=== PATIENT | male | born 1965 | race Caucasian/White ===

== ENCOUNTER 2017-04-03 08:16 | Emergency (ER) | payer BC ==
[2017-04-03 08:21] VITALS: BP 151/93; PULSE 65; RESP 18; TEMP 98.3
--- NOTE | 2017-04-03 08:46 | XR ---
EXAMINATION TYPE: XR shoulder complete LT DATE OF EXAM: 04/03/2017 8:40 AM CLINICAL HISTORY: pain COMPARISON: NONE TECHNIQUE: Three views of the left shoulder are obtained. FINDINGS: There is no acute fracture/dislocation evident. The acromioclavicular and glenohumeral apurva int spaces appear mildly narrowed. The visualized ribs are intact and unremarkable. IMPRESSION: 1. There is no acute fracture or dislocation. ICD 10 NO FRACTURE, INITIAL EVALUATION
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
== END 2017-04-03 09:04 | disposition home or self-care (01) ==
LOC: EC 08:16
DX: S46.002A Unspecified injury of muscle(s) and tendon(s) of the rotator cuff of left shoulder, initial encounter (principal); I10 Essential (primary) hypertension; Z87.891 Personal history of nicotine dependence; Z79.899 Other long term (current) drug therapy; V86.09XA Driver of other special all-terrain or other off-road motor vehicle injured in traffic accident, initial encounter
CPT/HCPCS: 99283

== ENCOUNTER 2021-02-16 07:37 | Emergency (ER) | payer BC ==
[2021-02-16 07:42] VITALS: TEMP 98.2
[2021-02-16] MEDS ORDERED: MORPHINE SULFATE 4 MG/ML SYRINGE IM STA (07:48)
--- NOTE | 2021-02-16 07:52 | ED ---
General Adult HPI - General Chief complaint: Fall Stated complaint: fall/arm injury Source: patient Limitations: no limitations - History of Present Illness Initial comments: 35-year-old male with a past medical history of hypertension presents to the emergency room for a chief complaint of left wrist pain. Patient states about 5 hours prior to arrival he fell down about a flight of stairs. States he was walking on the stairs and his cat ran up in tripped him. Patient states he did not hit his head. He denies neck pain. Denies any back chest or abdominal pain. Patient's complaint is left wrist pain. Patient states he thinks it is broken.Patient has no other complaints at this time including shortness of breath, chest pain, abdominal pain, nausea or vomiting, headache, or visual changes. - Related Data Home Medications Medication Instructions Recorded Confirmed Ibuprofen [Motrin] 800 mg PO Q8H PRN 02/16/21 02/16/21 Nebivolol HCl [Bystolic] 20 mg PO DAILY 02/16/21 02/16/21 Allergies Allergy/AdvReac Type Severity Reaction Status Date / Time No Known Allergies Allergy Verified 02/16/21 08:23 Review of Systems ROS Statement: Those systems with pertinent positive or pertinent negative responses have been documented in the HPI. ROS Other: All systems not noted in ROS Statement are negative. Past Medical History Past Medical History: Hypertension History of Any Multi-Drug Resistant Organisms: None Reported Past Surgical History: Orthopedic Surgery Past Psychological History: No Psychological Hx Reported Smoking Status: Former smoker Past Alcohol Use History: Occasional Past Drug Use History: None Reported General Exam Limitations: no limitations General appearance: alert, in no apparent distress Head exam: Present: atraumatic, normocephalic, normal inspection Eye exam: Present: normal appearance, PERRL, EOMI. Absent: scleral icterus, conjunctival injection, periorbital swelling ENT exam: Present: normal exam, mucous membranes moist Neck exam: Present: normal inspection, full ROM. Absent: tenderness Respiratory exam: Present: normal lung sounds bilaterally. Absent: respiratory distress, wheezes, rales, rhonchi, stridor, chest wall tenderness, other (No ecchymosis) Cardiovascular Exam: Present: regular rate, normal rhythm, normal heart sounds. Absent: systolic murmur, diastolic murmur, rubs, gallop, clicks GI/Abdominal exam: Present: soft, normal bowel sounds. Absent: distended, tenderness (No tenderness, no ecchymosis), guarding, rebound, rigid Extremities exam: Present: tenderness (Tenderness to the distal left wrist.), normal capillary refill (Capillary refill less than 2 seconds, radial pulse 2+ in the left upper extremity), joint swelling (Mild edema of the left wrist, no rings on the left hand), other (sensation of the left hand.). Absent: normal inspection (Deformity noted of the left wrist in a dinner fork pattern), full ROM (Patient able to move all fingers of the left hand. Able to make okay sign, abduction fingers. Pain limits patient's flexion and extension of the left wrist.) Back exam: Absent: CVA tenderness (R), CVA tenderness (L), vertebral tenderness (No thoracic or lumbar spine tenderness. No ecchymosis.) Neurological exam: Present: alert Course Vital Signs 02/16/21 02/16/21 07:38 08:42 Temperature 98.2 F Pulse Rate 69 63 Respiratory 16 18 Rate Blood Pressure 155/101 138/93 O2 Sat by Pulse 97 96 Oximetry Procedures - Orthopedic Fracture Reduction Fracture #1 Consent Obtained: verbal consent Side: left Fracture Reduction Location: radius Analgesia: hematoma block (aseptic technique utilized) Technique: direct manipulation, traction/counter-traction Splint Applied: Yes (sugar tong) Patient Tolerated Procedure: well, no complications - Orthopedic Splinting/Casting Injury #1 Side: left Upper Extremity Injury Location: long arm Upper Extremity Immobilizer: sugar tong splint Medical Decision Making - Medical Decision Making X-ray of the left wrist did reveal an acute comminuted displaced intra-articular fracture through the distal radial metaphysis. Patient has sensation intact in all digits. Able to move all fingers. Radial pulses 2+. Capillary refill less than 2 seconds in all fingers. Hematoma block was performed with aseptic technique. I was then able to attempt reduction of the left wrist which was splinted in a sugar tong. Repeat x-ray show some persistent dorsal angulation however there is some improvement in alignment on review of films. At this time patient will follow up with orthopedics and return for any worsening symptoms. Disposition Clinical Impression: Distal radius fracture, left Disposition: HOME SELF-CARE Condition: Good Instructions (If sedation given, give patient instructions): Wrist Fracture in Adults (ED) Additional Instructions: Please keep the splint dry. Please rest ice and elevate the left wrist. Follow-up with orthopedics by calling today for an appointment. Take Tylenol 3 for pain, do not drive or operate machinery while taking this. Return to the emergency room for any worsening symptoms. Is patient prescribed a controlled substance at d/c from ED?: No Referrals: Magdaleno Guzman MD [Primary Care Provider] - 1-2 days Parker Herbert MD [STAFF PHYSICIAN] - 1-2 days Time of Disposition: 09:27
--- NOTE | 2021-02-16 08:34 | XR ---
EXAMINATION TYPE: XR wrist complete LT DATE OF EXAM: 02/16/2021 CLINICAL HISTORY: Fall injury with pain. TECHNIQUE: Frontal, lateral, scaphoid, and oblique images of the left wrist are obtained. COMPARISON: None FINDINGS: There is acute comminuted displaced impacted intra-articular fracture distal radial meta-e piphysis. There is dorsal step-off of the scaphoid relative to the distal radius. Several fracture f ragments involving radial articulation. Distal ulna are intact. Carpal joint spaces are maintained. M ild to moderate associated soft tissue swelling. IMPRESSION: There is acute comminuted displaced intra-articular fracture through distal radial metap hysis. (Initial encounter closed type posttraumatic fracture)
[2021-02-16] MEDS ORDERED: LIDOCAINE 1% INJ 10MG/ML (20 ML MDV) SQ ONE (08:43)
[2021-02-16 08:56] VITALS: BP 138/93; PULSE 63; RESP 18
[2021-02-16] MEDS ORDERED: ACET/COD 300 MG/30 MG STARTER PACK 6 TAB BTL PO STA (09:27)
--- NOTE | 2021-02-16 09:52 | XR ---
Left wrist HISTORY: Post reduction 3 views the left wrist correlated prior exam 02/16/2021 at earlier time Patient's intra-articular and comminuted wrist fracture of the distal left radius is seen in cast. Th ere is some persistent dorsal angulation. Small ossific density present dorsal to the wrist on the la teral exam could be related to carpal bones, triquetral fracture. IMPRESSION: Fractures in cast
== END 2021-02-16 10:15 | disposition home or self-care (01) ==
LOC: EC 07:37
DX: S52.572A Other intraarticular fracture of lower end of left radius, initial encounter for closed fracture (principal); I10 Essential (primary) hypertension; Z87.891 Personal history of nicotine dependence; W10.9XXA Fall (on) (from) unspecified stairs and steps, initial encounter; Y93.01 Activity, walking, marching and hiking
CPT/HCPCS: 25605; 96372; 99283